=== PATIENT | male | born 1960 | race Caucasian/White ===

== ENCOUNTER → 2020-03-29 09:07 | Outpatient (BNVA) | payer OTHER, SELFPAY | PROVIDERS: PCP Nurse Practitioner Family; Visit Provider Internal Medicine Rheumatology | DX: M31.30 Wegener's granulomatosis without renal involvement (principal); I77.6 Arteritis, unspecified; Z79.899 Other long term (current) drug therapy | CPT/HCPCS: 99204 ==

== ENCOUNTER 2020-05-10 10:40 | Outpatient (CLI) | payer OTHER, SELFPAY ==
[2020-05-10] MEDS: acetaminophen 325 mg Tablet 650 MG PO (11:45)
[2020-05-10 11:50] VITALS: BP 152/95; PULSE 72; RESP 16; TEMP 37.3; O2SAT 98
[2020-05-10] MEDS: sodium chloride 0.9% 250 ML 30 ML IV (11:50)
[2020-05-10] MEDS: sodium chloride 0.9% (100 ml) 100 ML 75 ML (12:14)
[2020-05-10] MEDS: diphenhydrAMINE 50 mg/mL SDV 1mL 25 MG IVP (12:14)
[2020-05-10] MEDS: rituximab 1,000 MG in sodium chloride 0.9% 250 ML, primary tubing onc 1 EACH 75 MG IV (12:15)
[2020-05-10 12:21] LABS: Basophils % 0.4 %; Eosinophils # 0.1 10^3/uL (0.0-0.8); Eosinophils % 1.1 %; Hematocrit 42.8 % (42.0-52.0); Hemoglobin 14.6 g/dL (11.7-16.6); Lymphocytes # 1.3 10^3/uL (0.8-4.8); Lymphocytes % 18.4 %; Mean Corpuscular HGB Conc 34.1 g/dL (30.0-36.0); Mean Corpuscular Hemoglobin 31.9 pg (28.0-34.0); Mean Corpuscular Volume 93.7 fL (80-94); Mean Platelet Volume 10.8 fL (7.4-10.4); Monocytes # 0.4 10^3/uL (0.2-0.9); Monocytes % 5.5 %; Neutrophils # 5.17 10^3/uL (1.8-7.7); Neutrophils % 74.3 %; Nucleated Red Blood Cells % 0 %; Platelet Count 163 10^3/cmm (130-400); Red Blood Count 4.57 10^6/uL (4.1-5.3); Red Cell Distribution Width 12.8 % (12.1-15.1)
[2020-05-10 12:38] LABS: Alanine Aminotransferase 13 U/L (0-41); Albumin Level 4.2 g/dL (3.5-5.2); Alkaline Phosphatase 123 IU/L (40-130); Aspartate Amino Transferase 17 U/L (0-40); C Reactive Protein 2.6 mg/L (0.0-4.9); Globulin 2.7 g/dL (1.3-4.6); Glomerular Filtration Rate 75.7 mL/min (90-130); Total Bilirubin 1.3 mg/dL (0.15-1.2); Total Protein 6.9 g/dL (6.6-8.7)
== END 2020-05-10 10:41 | disposition home or self-care (01) ==
LOC: ONCMED 10:42
PROVIDERS: PCP Nurse Practitioner Family; Visit Provider Internal Medicine Rheumatology
DX: M31.30 Wegener's granulomatosis without renal involvement (principal); J38.6 Stenosis of larynx
CPT/HCPCS: 80076; 82565; 85025; 86140; 96365; 96366; 96375; J1200; J2930; J7050; J9312

== ENCOUNTER → 2020-10-26 10:46 | Outpatient (BNVA) | payer OTHER, SELFPAY | PROVIDERS: PCP Nurse Practitioner Family; Visit Provider Internal Medicine Rheumatology | DX: M31.30 Wegener's granulomatosis without renal involvement (principal); I77.6 Arteritis, unspecified; Z79.899 Other long term (current) drug therapy; Z71.89 Other specified counseling | CPT/HCPCS: 99214 ==

== ENCOUNTER 2020-11-10 10:46 | Outpatient (CLI) | payer OTHER, SELFPAY ==
[2020-11-10 10:57] VITALS: BP 163/80; PULSE 69; RESP 18; TEMP 36.8; O2SAT 97
[2020-11-10] MEDS: acetaminophen 325 mg Tablet 650 MG PO (11:21)
[2020-11-10] MEDS: sodium chloride 0.9% 250 ML 75 ML IV (11:23)
[2020-11-10] MEDS: diphenhydrAMINE 50 mg/mL SDV 1mL 25 MG IVP (11:25)
[2020-11-10] MEDS: rituximab 1,000 MG in sodium chloride 0.9% 250 ML, primary tubing onc 1 EACH 90 MG IV (11:34)
[2020-11-10 12:01] VITALS: BP 130/77; PULSE 63; RESP 18; TEMP 37; O2SAT 99
[2020-11-10 12:33] VITALS: BP 122/72; PULSE 65; RESP 18; TEMP 36.8; O2SAT 98
[2020-11-10 13:35] VITALS: BP 137/72; PULSE 60; RESP 18; TEMP 36.7; O2SAT 99
== END 2020-11-10 10:47 | disposition home or self-care (01) ==
LOC: ONCMED 10:51
PROVIDERS: PCP Nurse Practitioner Family; Referring Provider Internal Medicine Rheumatology; Visit Provider Internal Medicine Rheumatology
DX: M31.30 Wegener's granulomatosis without renal involvement (principal); J38.6 Stenosis of larynx
CPT/HCPCS: 96365; 96366; 96375; J1200; J2930; J7050; J9312

== ENCOUNTER 2020-12-08 10:51 | Outpatient (CLI) | payer OTHER, SELFPAY ==
[2020-12-08 11:07] VITALS: BP 149/79; PULSE 64; RESP 18; TEMP 37; O2SAT 98
[2020-12-08] MEDS: acetaminophen 325 mg Tablet 650 MG PO (11:31)
[2020-12-08] MEDS: sodium chloride 0.9% 250 ML 75 ML IV (11:33)
[2020-12-08] MEDS: diphenhydrAMINE 50 mg/mL SDV 1mL 25 MG IV (11:35)
[2020-12-08] MEDS: rituximab 1,000 MG in sodium chloride 0.9% 250 ML, primary tubing onc 1 EACH 90 MG IV (11:44)
[2020-12-08 11:58] LABS: Basophils % 0.4 %; Eosinophils # 0.1 10^3/uL (0.0-0.8); Eosinophils % 1.4 %; Hematocrit 44.9 % (42.0-52.0); Lymphocytes # 1.5 10^3/uL (0.8-4.8); Lymphocytes % 19.4 %; Mean Corpuscular HGB Conc 33.4 g/dL (30.0-36.0); Mean Corpuscular Hemoglobin 31.3 pg (28.0-34.0); Mean Corpuscular Volume 93.5 fl (80-94); Mean Platelet Volume 11.2 fL (7.4-10.4); Monocytes # 0.4 10^3/uL (0.2-0.9); Monocytes % 5.6 %; Neutrophils # 5.77 10^3/uL (1.8-7.7); Neutrophils % 72.8 %; Nucleated Red Blood Cells % 0 %; Platelet Count 174 10^3/cmm (130-400); White Blood Count 7.9 10^3/uL (4.0-10.0)
[2020-12-08 12:13] VITALS: BP 127/70; PULSE 64; RESP 18; TEMP 37.1; O2SAT 98
[2020-12-08 12:29] LABS: Alanine Aminotransferase 17 U/L (0-41); Albumin Level 4.5 g/dL (3.5-5.2); Alkaline Phosphatase 130 IU/L (40-130); Aspartate Amino Transferase 21 U/L (0-40); C Reactive Protein 7.7 mg/L (0.0-4.9); Globulin 2.7 g/dL (1.3-4.6); Glomerular Filtration Rate 75.7 mL/min (90-130); Total Bilirubin 1.1 mg/dL (0.15-1.2); Total Protein 7.2 g/dL (6.6-8.7)
[2020-12-08 12:47] VITALS: BP 127/70; PULSE 56; RESP 18; TEMP 36.8; O2SAT 99
[2020-12-08 13:48] VITALS: BP 129/70; PULSE 54; RESP 18; TEMP 37; O2SAT 98
== END 2020-12-08 10:52 | disposition home or self-care (01) ==
LOC: ONCMED 10:52
PROVIDERS: PCP Nurse Practitioner Family; Visit Provider Internal Medicine Rheumatology
DX: M31.30 Wegener's granulomatosis without renal involvement (principal); J38.6 Stenosis of larynx; R76.8 Other specified abnormal immunological findings in serum
CPT/HCPCS: 80076; 82565; 85025; 86140; 96365; 96366; 96375; J1200; J2930; J7050; J9312

== ENCOUNTER 2021-08-21 08:36 | Outpatient (CLI) | payer OTHER, SELFPAY ==
[2021-08-21 08:55] VITALS: BP 163/81; PULSE 67; RESP 18; TEMP 37.2; O2SAT 98
--- NOTE | 2021-08-21 09:19 | PC.PHAR ---
spoke with nurse brad regarding patients PA as i do not see any info on the dashboard. she stated that pa is in place and good through 11/18/21. okay to buy and bill.
[2021-08-21 09:23] LABS: Basophils % 0.3 %; Eosinophils # 0.1 10^3/uL (0.0-0.8); Eosinophils % 1.7 %; Hematocrit 42.7 % (42.0-52.0); Lymphocytes # 1.6 10^3/uL (0.8-4.8); Lymphocytes % 21.1 %; Mean Corpuscular HGB Conc 35.1 g/dL (30.0-36.0); Mean Corpuscular Hemoglobin 31.8 pg (28.0-34.0); Mean Corpuscular Volume 90.7 fl (80-94); Mean Platelet Volume 10.8 fL (7.4-10.4); Monocytes # 0.6 10^3/uL (0.2-0.9); Monocytes % 7.4 %; Neutrophils # 5.14 10^3/uL (1.8-7.7); Neutrophils % 69.2 %; Nucleated Red Blood Cells % 0 %; Platelet Count 165 10^3/cmm (130-400); Red Blood Count 4.71 10^6/uL (4.1-5.3); Red Cell Distribution Width 12.4 % (12.1-15.1); White Blood Count 7.4 10^3/uL (4.0-10.0)
[2021-08-21] MEDS: sodium chloride 0.9% 250 ML 50 ML IV (09:34)
[2021-08-21] MEDS: acetaminophen 325 mg Tablet 650 MG PO (09:35)
[2021-08-21] MEDS: diphenhydrAMINE 50 mg/mL SDV 1mL 25 MG IVP (09:36)
[2021-08-21 09:44] LABS: Alanine Aminotransferase 17 U/L (0-41); Albumin Level 4.3 g/dL (3.5-5.2); Alkaline Phosphatase 130 IU/L (40-130); Aspartate Amino Transferase 24 U/L (0-40); Globulin 2.1 g/dL (1.3-4.6); Glomerular Filtration Rate 75.5 mL/min (90-130); Total Bilirubin 0.9 mg/dL (0.15-1.2); Total Protein 6.4 g/dL (6.6-8.7)
[2021-08-21] MEDS: rituximab 1,000 MG in sodium chloride 0.9% 250 ML, primary tubing onc 1 EACH 90 MG IV (09:44)
[2021-08-21 10:07] LABS: Erythrocyte Sedimentation Rate 1 mm/hr (0-10)
[2021-08-21 10:15] VITALS: BP 139/71; PULSE 68; RESP 18; TEMP 37.3; O2SAT 97
[2021-08-21 10:47] VITALS: BP 153/81; PULSE 63; RESP 18; TEMP 37.2; O2SAT 97
[2021-08-21 11:55] VITALS: BP 136/75; PULSE 63; RESP 18; TEMP 36.7; O2SAT 95
== END 2021-08-21 08:37 | disposition home or self-care (01) ==
PROVIDERS: PCP Nurse Practitioner Family; Referring Provider Internal Medicine Rheumatology; Visit Provider Internal Medicine Rheumatology
DX: M31.30 Wegener's granulomatosis without renal involvement (principal)
CPT/HCPCS: 80076; 82565; 85025; 85651; 96365; 96366; 96375; J1200; J2930; J7050; J9312

== ENCOUNTER 2021-09-04 08:32 | Outpatient (CLI) | payer OTHER, SELFPAY ==
[2021-09-04 08:45] VITALS: BP 176/78; PULSE 71; RESP 18; TEMP 36.3; O2SAT 99
[2021-09-04] MEDS: sodium chloride 0.9% 250 ML 50 ML IV (09:23)
[2021-09-04] MEDS: acetaminophen 325 mg Tablet 650 MG PO (09:25)
[2021-09-04] MEDS: diphenhydrAMINE 50 mg/mL SDV 1mL 25 MG IVP (09:27)
[2021-09-04] MEDS: rituximab 1,000 MG in sodium chloride 0.9% 250 ML, primary tubing onc 1 EACH 90 MG IV (09:36)
[2021-09-04 10:03] VITALS: BP 137/74; PULSE 67; RESP 18; TEMP 36.5; O2SAT 99
[2021-09-04 10:35] VITALS: BP 134/82; PULSE 65; RESP 18; TEMP 36.4; O2SAT 96
[2021-09-04 11:34] VITALS: BP 166/77; PULSE 62; RESP 18; TEMP 36.6; O2SAT 98
== END 2021-09-04 08:33 | disposition home or self-care (01) ==
PROVIDERS: PCP Nurse Practitioner Family; Referring Provider Internal Medicine Rheumatology; Visit Provider Internal Medicine Rheumatology
DX: M31.30 Wegener's granulomatosis without renal involvement (principal)
CPT/HCPCS: 96365; 96366; 96375; J1200; J2930; J7050; J9312

== ENCOUNTER 2022-02-26 09:20 | Outpatient (CLI) | payer OTHER, SELFPAY ==
[2022-02-26 09:54] VITALS: BP 130/68; PULSE 78; RESP 18; TEMP 37.2; O2SAT 99
[2022-02-26] MEDS: sodium chloride 0.9% 250 ML 50 ML IV (10:03)
[2022-02-26 10:07] LABS: Basophils % 0.3 %; Eosinophils # 0.1 10^3/uL (0.0-0.8); Eosinophils % 0.6 %; Hematocrit 51.2 % (42.0-52.0); Hemoglobin 17.6 g/dL (11.7-16.6); Lymphocytes # 1.8 10^3/uL (0.8-4.8); Mean Corpuscular HGB Conc 34.4 g/dL (30.0-36.0); Mean Corpuscular Hemoglobin 32.1 pg (28.0-34.0); Mean Corpuscular Volume 93.3 fl (80-94); Mean Platelet Volume 10.7 fL (7.4-10.4); Monocytes # 0.5 10^3/uL (0.2-0.9); Monocytes % 4.6 %; Neutrophils # 8.66 10^3/uL (1.8-7.7); Nucleated Red Blood Cells % 0 %; Platelet Count 227 10^3/cmm (130-400); Red Blood Count 5.49 10^6/uL (4.1-5.3); Red Cell Distribution Width 12.5 % (12.1-15.1); White Blood Count 11.1 10^3/uL (4.0-10.0)
[2022-02-26 10:12] LABS: Erythrocyte Sedimentation Rate 2 mm/hr (0-10)
[2022-02-26] MEDS: acetaminophen 325 mg Tablet 650 MG PO (10:16)
[2022-02-26] MEDS: diphenhydrAMINE 50 mg/mL SDV 1mL 25 MG IVP (10:17)
[2022-02-26] MEDS: rituximab 1,000 MG in sodium chloride 0.9% 250 ML, primary tubing onc 1 EACH 90 MG IV (10:24)
[2022-02-26 10:36] LABS: Alanine Aminotransferase 27 U/L (0-41); Albumin Level 5.1 g/dL (3.5-5.2); Alkaline Phosphatase 164 U/L (40-130); Aspartate Amino Transferase 30 U/L (0-40); Globulin 3.3 g/dL (1.3-4.6); Glomerular Filtration Rate 61.1 mL/min (90-130); Total Bilirubin 1.5 mg/dL (0.15-1.2); Total Protein 8.4 g/dL (6.6-8.7)
[2022-02-26 11:00] VITALS: BP 114/66; PULSE 67; RESP 18; TEMP 37.2; O2SAT 96
[2022-02-26 12:31] VITALS: BP 142/80; PULSE 70; RESP 18; TEMP 37.1; O2SAT 99
== END 2022-02-26 09:21 | disposition home or self-care (01) ==
PROVIDERS: PCP Nurse Practitioner Family; Referring Provider Internal Medicine Rheumatology; Visit Provider Internal Medicine Rheumatology
DX: M31.30 Wegener's granulomatosis without renal involvement (principal)
CPT/HCPCS: 80076; 82565; 85025; 85651; 96365; 96366; 96375; J1200; J2930; J7050; J9312

== ENCOUNTER 2022-03-14 09:42 | Outpatient (CLI) | payer OTHER, SELFPAY ==
[2022-03-14 10:02] VITALS: BP 162/89; PULSE 72; RESP 18; TEMP 36.9; O2SAT 99
[2022-03-14] MEDS: sodium chloride 0.9% 250 ML 50 ML IV (10:33)
[2022-03-14] MEDS: acetaminophen 325 mg Tablet 650 MG PO (10:33)
[2022-03-14] MEDS: diphenhydrAMINE 50 mg/mL SDV 1mL 25 MG IVP (10:35)
[2022-03-14] MEDS: rituximab 1,000 MG in sodium chloride 0.9% 250 ML, primary tubing onc 1 EACH 90 MG IV (10:46)
[2022-03-14 11:28] VITALS: BP 138/68; PULSE 65; RESP 18; TEMP 36.7; O2SAT 96
[2022-03-14 12:55] VITALS: BP 168/84; PULSE 66; RESP 18; TEMP 36.4; O2SAT 98
== END 2022-03-14 09:43 | disposition home or self-care (01) ==
LOC: ONCMED 09:42
PROVIDERS: PCP Nurse Practitioner Family; Visit Provider Internal Medicine Rheumatology
DX: M31.30 Wegener's granulomatosis without renal involvement (principal)
CPT/HCPCS: 96365; 96366; 96375; J1200; J2930; J7050; J9312